=== PATIENT | male | born 1985 | race Caucasian/White ===

== ENCOUNTER 2017-05-21 10:02 | Inpatient (IN) | payer OTHER ==
[~2017-05-21] VITALS: Ht 175.3 cm; Wt 72.6 kg
[~2017-05-21 10:02] MED LIST: ABILIFY10 MG PO; BACTRIM DS TAB1 EACH PO; BUSPIRONE HCL5 MG PO; KEFLEX500 MG PO; MUPIROCIN22 GM TOP; NORCO 5-325 TA1 EACH PO; PERCOCET 5-3251 EACH PO; STRATTERA80 MG PO
--- NOTE | 2017-05-21 14:45 | NUR ---
PT WAS SHOWN TO HIS ROOM WITH DEPUTY. PT WAS NOT CHANGED INTO A GOWN PER POLICY. PT REMAINED IN 4PT CORRECTIONAL RESTRAINTS. SKIN UNDER RESTRAINTS IS INTACT. PT COOPERATIVE. C/O PAIN IN RIGHT MIDDLE FINGER. RIGHT MIDDLE FINGER IS VERY RED, VERY SWOLLEN, AND DISCOLORED. THERE IS A SMALL OPEN AREA IN CENTER THAT IS NOT CURRENTLY DRAINING. WOUND IS MARKED WITH MARKER.
--- NOTE | 2017-05-21 15:14 | NUR ---
PT'S RIGHT ARM ELEVATED WITH PILLOWCASE SLING. DEPUTY WAS ABLE TO RELEASE HAND FROM HANDCUFFS AND ZIP TIES.
--- NOTE | 2017-05-21 17:39 | NUR ---
PT INDEPENDENT IN ROOM WITH DEPUTY IN ROOM. SL IV EXCEPT FOR VANCOMYCIN. PRN NORCO X1 GIVEN, EFFECTIVE.
--- NOTE | 2017-05-21 18:04 | NUR ---
FLU SHOT GIVEN, CONSENT SIGNED AND IN CHART. PT TOLERATED WELL.
--- NOTE | 2017-05-21 21:24 | NUR ---
RECEIVED REPORT AT 1900. FOUND PT IN BED WATCHING TV AND IN GOOD SPIRITS. PAIN WAS TOLERABLE AT THAT TIME STATED BY PT. ARM WAS ELEVATED. ALL LOBES ARE CLEAR, V/S ARE WDL, PT DENIES NUMBNESS ON RIGHT MIDDLE FINGER. CAP REFILL ON THAT FINGER IS >3SEC. PAIN AT TIME OF ASSESSMENT WAS A 8. 1 TAB NORCO WAS GIVEN. OTHERWISE NO OTHER ISSUES WERE NOTED AT THIS TIME.
--- NOTE | 2017-05-22 00:44 | NUR ---
PT IS SLEEPING AT THIS TIME.
--- NOTE | 2017-05-22 02:35 | NUR ---
PT RECEIVED 15MG IV TORADOL AT 0200. REDNESS ON RIGHT MIDDLE FINGER HAS LESSEND. PT IS BACK IN BED.
--- NOTE | 2017-05-22 05:01 | NUR ---
V/S ARE WDL. PAIN IS CONTROLLED WITH PRN PAIN MEDS. CAP REFILL IS <3SEC IN RIGHT MIDDLE FINGER. REDNESS HAS LESSEND SIGNIFICANTLY SINCE THE LAST DOSE OF VANCOMYCIN. EDEMA IS STILL +2 ON THAT FINGER. NO NEW PROBLEMS NOTED SO FAR.
--- NOTE | 2017-05-22 07:24 | NUR ---
RECIEVED BEDSIDE REPORT FROM LOYDA HERNANDEZ. PT SLEEPING, BREATHING EVEN AND UNLABORED. DEPUTY AT BEDSIDE. CORRECTIONAL RESTRAINTS IN PLACE.
--- NOTE | 2017-05-22 09:46 | NUR ---
ROUNDED WITH PA. SHE IS PLEASED WITH PROGRESS AFTER 2 DOSES OF VANCO. ENCOURAGED PT TO KEEP HAND UP IN PILLOWCASE SLING. PT VERBALIZED UNDERSTANDING OF PLAN OF CARE. PT HAS BEEN COOPERATIVE WITH PLAN, HAS KEEP HIS ARM UP MOST OF THE TIME.
--- NOTE | 2017-05-22 13:50 | NUR ---
PT IN BED WITH ARM ELEVATED IN PILLOW SLING. PT STATES HIS HAND FEELS BETTER. REDNESS CONTINUES TO RECEED. SCANT AMT OF DRAINAGE AT TIMES.
--- NOTE | 2017-05-22 19:00 | NUR ---
BEDSIDE REPORT RECEIVED FROM OFFGOING NURSE. PT LYING IN BED WITH OFFICER AT BEDSIDE. PT'S HAND ELEVATED IN PILLOW CASE SLING. PT DENIES PAIN, OR NEEDS AT THIS TIME. CALL LIGHT WITHIN REACH.
--- NOTE | 2017-05-22 19:04 | NUR ---
PT APPROPRIATE THIS SHIFT. PT KEEPING HAND ELEVATED MAJORITY OF SHIFT. REDNESS AND SWELLING ARE RESOLVING. WOUND IS NOT DRAINING AT THIS TIME. PT STATES PAIN IS EFFECTIVLY CONTROLED WITH PRN NORCO, GIVEN TWICE THIS SHIFT. TOLERATES REGULAR DIET WELL. VOIDING WELL. NO BM REPORTED THIS SHIFT.
--- NOTE | 2017-05-22 21:30 | NUR ---
MD CONTACTED REGARDING PT HOME MED ABILIFY, NEW ORDER RECEIVED. INTERACTION BETWEEN ABILIFY AND OPIOID DISCUSSED WITH AND MARISSA
--- NOTE | 2017-05-22 22:30 | NUR ---
PT ASSESSMENT COMPLETED. PT RATES PAIN 7/10 TO R FINGER/ HAND. MOTION TO R HAND WEAK, PT STATES TINGLING AND SLIGHT NUMBNESS TO R FINGER. R FINGER HOT AND RED. REDNESS REMAINS WITHIN THE OUTLINED AREA. NO DISCHARGE NOTED. PT CONTINUES TO ELVATE HAND IN PILLOW CASE SLING. PRN NORCO AND TORADOL ADMINISTERED. PT DENIES OTHER NEEDS. CALL LIGHT WITHIN REACH.
--- NOTE | 2017-05-23 00:08 | NUR ---
PT RESTING IN BED WITH EYES CLOSED. RESPIRATIONS EVEN AND UNLABORED. PT APPEARS TO BE SLEEPING. DOES NOT WAKE TO IV PUMP ALARMING. OFFICER REMAINS AT BEDSIDE. CALL LIGHT WITHIN REACH.
--- NOTE | 2017-05-23 01:45 | NUR ---
PT RESTING WITH EYES CLOSED. WAKES EASILY. ASSESSMENT COMPLETED. PT DENIES PAIN AT THIS TIME. REDNESS TO R MIDDLE FINGER REMAINS WITHIN OUTLINE. NO DRAINAGE NOTED AT THIS TIME. PT ABLE TO WEAKLY SQUEEZE PUMP OILER'S FINGERS. REPORTS SLIGHT NUMBNESS AND TINGLING TO R MIDDLE FINGER. CAP REFILL <3 SEC. HAND REMOVED FROM SLING UPON ASSESSMENT. PT DENIES OTHER NEEDS. OFFICER REMAINS AT BEDSIDE. CALL LIGHT WITHIN REACH.
--- NOTE | 2017-05-23 04:15 | NUR ---
PT RESTING IN BED WITH EYES CLOSED. RESPIRATIONS EVEN AND UNLABORED PT APPEARS TO BE SLEEPING. OFFICER REMAINS AT BEDSIDE. CALL LIGHT WITHIN REACH.
--- NOTE | 2017-05-23 06:09 | NUR ---
PT HAS NOT VOIDED SINCE 2199 OR FLUIDS, SLEEPING. RN ASSIGNED AWARE.
--- NOTE | 2017-05-23 06:40 | NUR ---
UNEVENTFUL NIGHT. REDNESS TO R MIDDLE FINGER REMAINS WITHIN OUTLINE. NO DRAINAGE NOTED THIS SHIFT. PT ABLE TO WEAKLY SQUEEZE WITH R HAND. REPORTS NUMBNESS AND TINGLINING TO R MIDDLE FINGER. PT CONTINUES TO USE PILLOW CASE SLING APPROPRIATELY. PAIN MEDICATION X 1 THIS SHIFT. IND IN ROOM. IV SL.
--- NOTE | 2017-05-23 07:19 | NUR ---
RECIEVED BEDSIDE REPORT FROM LOYDA GARZA. PT AWAKE AND ALERT IN ROOM, DEPUTY AT BEDSIDE. REMINDED PT TO USE PILLOW SLING ABLE. NO C/O PAIN.
--- NOTE | 2017-05-23 10:17 | NUR ---
PT UP TO SHOWER WITH DEPUTY. HAND WRAPPED AND IV WRAPPED.
--- NOTE | 2017-05-23 10:31 | NUR ---
ROUNDED WITH DR RASHID. ABCESS WAS OPENED SLIGHTLY AND DRAINED A SMALL AMOUNT. MD WOULD LIKE PT TO SHOWER WITH WOUND OPEN TO ALLOW SOAP AND WATER TO RINSE. THEN DRESS WITH DRY GUAZE. PLAN TO DC TOMORROW.
--- NOTE | 2017-05-23 11:21 | NUR ---
ANTIBIOTIC RUNNING, NO COMPLAINTS. IV SITE REINFORCED WITH TAPE. RIGHT MIDDLE FINGER WRAPED WITH GAUZE AND COBAN. WOUND HAS MINIMAL DRAINAGE.
--- NOTE | 2017-05-23 13:22 | NUR ---
IV INFUSION COMPLETE. ASSISTED DEPUTY IN CHANGING WRIST RESTRAINTS. SKIN UNDER RESTRAINTS IS INTACT, NO REDNESS OR OPEN AREAS NOTED.
[2017-05-23] MEDS ORDERED: ARIPIPRAZOLE10 MG PO (14:22)
--- NOTE | 2017-05-23 14:43 | NUR ---
Admission reconciliation complete
--- NOTE | 2017-05-23 15:21 | NUR ---
Patient doing well. Watching football with the guard.
--- NOTE | 2017-05-23 15:49 | NUR ---
PT SLEEPING, BREATHING EVEN AND UNLABORED.
--- NOTE | 2017-05-23 16:51 | NUR ---
Got patient a hot pack for his finger.
--- NOTE | 2017-05-23 18:01 | NUR ---
DR RASHID OPENED WOUND ON R MIDDLE FINGER. WOUND DRAINING SMALL AMOUNTS OF PERULENT DISCHARGE. FINGER IS WRAPPED IN GUAZE AND COBAN. PT REPORTS LESS PAIN. PT USING PILLOW SLING APPROPRIATELY. NORCO X2. NEW IV IN R FOREARM.
--- NOTE | 2017-05-23 20:09 | NUR ---
PT ASSESSMENT COMPLETE. PT ALERT AND ORIENTED, PLEASANT AND COOPERATIVE. PT RATES PAIN 5/10 IN RIGHT MIDDLE FINGER, NORCO GIVEN. PT DENIES ANY N/V, SOB. PT ON ROOM AIR. RESTING IN BED WATCHING TV. RIGHT MIDDLE FINGER DRESSED WITH GAUZE/COBAN, C/D/I. SCANT PURULENT DRAINAGE NOTED TO WOUND. PT C/O NUMBNESS TO FINGER, STATES SAME BEFORE ADMISSION, NO BETTER AND NO WORSE. REDNESS IS NOTED TO BE WITHIN MARKED OUTLINE, WARM/FIRM TO TOUCH. PT A DETENTION INMATE, DEPUTY x1 AT BEDSIDE. CALL LIGHT WITHIN REACH. PT DENIES ANY FURTHER NEEDS AT THIS TIME.
--- NOTE | 2017-05-23 21:40 | NUR ---
PT REMOVED DRESSING TO RIGHT MIDDLE FINGER, REDRESSED WITH GAUZE AND COBAN. SMALL AMOUNT OF SEROSANGUINOUS DRAINAGE OOZING FROM SITE. GOOD CAP REFILL. MYA CRACKERS GIVEN PER PT REQUEST. CALL LIGHT WITHIN REACH. PT DENIES ANY FURTHER NEEDS AT THIS TIME.
--- NOTE | 2017-05-24 00:05 | NUR ---
PT SLEEPING, RR EVEN AND UNLABORED. PT APPEARS COMFORTABLE AT THIS TIME. CALL LIGHT WITHIN REACH.
--- NOTE | 2017-05-24 02:35 | NUR ---
PT SLEEPING, RR EVEN AND UNLABORED. PT APPEARS COMFORTABLE AT THIS TIME. DEPUTY AT BEDSIDE. RESTRAINTS IN PLACE PER HALF-WAY PROTOCOL. IV ABX INITIATED PER MD ORDERS, INFUSING WITHOUT DIFFICULTY. DRESSING TO RIGHT MIDDLE FINGER HAS SMALL AMOUNT OF SHADOWING NOTED TO COBAN, SEROSANGUINOUS DRAINAGE. GOOD CAP REFILL. CALL LIGHT WITHIN REACH.
--- NOTE | 2017-05-24 04:44 | NUR ---
PT SLEEPING, RR EVEN AND UNLABORED. PT APPEARS COMFORTABLE AT THIS TIME. CALL LIGHT WITHIN REACH.
--- NOTE | 2017-05-24 07:43 | NUR ---
PT REQUESTED PAIN MEDICATION FOR 7/10 RIGHT HAND PAIN. PT AMB IN ROOM INDEPENDENTLY. FEET AND HANDS IN CORRECTIONAL RESTRAINTS. 1 SOLE ROUNDER AT BEDSIDE. PT MEDICATED AND IV SL. PT GIVEN BLACK COFFEE PER REQUEST. RIGHT HAND DRESSING INTACT WITH SMALL AMOUNT OF RED DRAINAGE NOTED. CMS INTACT. CALL LIGHT WITHIN REACH.
[2017-05-24] MEDS ORDERED: LEVAQUIN750 MG PO (08:27)
--- NOTE | 2017-05-24 10:42 | NUR ---
RIGHT FINGER REDRESSED BY PEPE JAMESON. PT TO RECIEVE ONE LAST DOSE OF VANCO BEFORE DC. PT SITTING IN BED WATCHING TV, IV INFUSING WNL. CALL LIGHT WITHIN REACH.
== END 2017-05-24 12:00 | disposition home or self-care (01) | DRG 603 ==
LOC: MS 10:02
PROVIDERS: ADMIT Specialist
PROC: 3E0234Z Introduction of Serum, Toxoid and Vaccine into Muscle, Percutaneous Approach (ICD-10-PCS; principal; 2017-05-21)
DX: L03.011 Cellulitis of right finger (principal); Z23 Encounter for immunization
CPT/HCPCS: 36415; 80048; 80053; 80202; 83605; 85025; 90674; 96365; 96366; 96375; 96376; G0008; G0378; G0379; J1885; J3370

== ENCOUNTER 2018-01-07 14:30 | Emergency (ER) | payer OTHER ==
[~2018-01-07] VITALS: Ht 175.3 cm; Wt 93.0 kg
[~2018-01-07 14:30] MED LIST changes: +ARIPIPRAZOLE10 MG PO; +LEVAQUIN750 MG PO
[2018-01-07] MEDS ORDERED: LAMICTAL25 MG PO (14:38)
== END 2018-01-07 14:45 | disposition home or self-care (01) ==
LOC: ED 14:30
DX: M25.511 Pain in right shoulder (principal)

== ENCOUNTER 2019-08-09 21:01 | Emergency (ER) | payer OTHER ==
[~2019-08-09] VITALS: Ht 175.3 cm; Wt 83.9 kg
[~2019-08-09 21:01] MED LIST changes: +LAMICTAL25 MG PO
[2019-08-09] MEDS ORDERED: ABILIFY MAINTE400 M1 IM (21:11)
[2019-08-09] MEDS ORDERED: REMERON15 MG PO (21:11)
[2019-08-09] MEDS ORDERED: PENICILLIN V P500 MG PO (22:11)
== END 2019-08-09 22:35 | disposition home or self-care (01) ==
LOC: ED 21:01
PROC: 0CQ0XZZ Repair Upper Lip, External Approach (ICD-10-PCS; principal; 2019-08-09)
DX: S01.511A Laceration without foreign body of lip, initial encounter (principal); Y04.8XXA Assault by other bodily force, initial encounter; F31.9 Bipolar disorder, unspecified; F17.200 Nicotine dependence, unspecified, uncomplicated; Z79.899 Other long term (current) drug therapy
CPT/HCPCS: 40650; 99282-25

== ENCOUNTER 2020-07-03 20:44 | Emergency (ER) | payer MEDICAID ==
[~2020-07-03] VITALS: Ht 175.3 cm; Wt 86.2 kg
[~2020-07-03 20:44] MED LIST changes: +ABILIFY MAINTE400 M1 IM; +PENICILLIN V P500 MG PO; +REMERON15 MG PO
[2020-07-03] MEDS ORDERED: ABILIFY10 MG PO (20:59)
== END 2020-07-03 22:25 | disposition left against medical advice (07) ==
LOC: ED 20:44
DX: N50.812 Left testicular pain (principal); N50.811 Right testicular pain; F41.9 Anxiety disorder, unspecified; F31.9 Bipolar disorder, unspecified; F17.200 Nicotine dependence, unspecified, uncomplicated; Z79.899 Other long term (current) drug therapy
CPT/HCPCS: 76870; 81001; 99284-25

== ENCOUNTER 2020-10-01 00:54 | Emergency (ER) | payer OTHER ==
[~2020-10-01] VITALS: Ht 175.3 cm; Wt 83.9 kg
[2020-10-01] MEDS ORDERED: CYCLOBENZAPRINE10 MG PO (01:42)
[2020-10-01] MEDS ORDERED: MEDROL4 M1 PO (01:42)
== END 2020-10-01 01:54 | disposition home or self-care (01) ==
LOC: ED 00:54
DX: M54.5 Low back pain (principal); R00.0 Tachycardia, unspecified; F19.10 Other psychoactive substance abuse, uncomplicated; F17.200 Nicotine dependence, unspecified, uncomplicated
CPT/HCPCS: 81001; 99283

== ENCOUNTER 2021-09-08 12:27 | Emergency (ER) | payer OTHER ==
[~2021-09-08] VITALS: Ht 175.3 cm; Wt 83.9 kg
[~2021-09-08 12:27] MED LIST changes: +CYCLOBENZAPRINE10 MG PO; +MEDROL4 M1 PO
[2021-09-08] MEDS ORDERED: HYDROXYZINE PAM25 MG PO (17:00)
[2021-09-08] MEDS ORDERED: CLONIDINE HCL0.1 MG PO (17:00)
--- NOTE | 2021-09-09 18:16 | EKG ---
[facility] [address] [place], [place] [address] Signed Normal sinus rhythm Minimal voltage criteria for LVH, may be normal variant ( Sokolow-Olmstead ) Borderline ECG No previous ECGs available Confirmed by CHRISTINE EVANS DO ([id number]) on 09/09/2021 6:16:26 PM Electronically Signed By: CHRISTINE EVANS DO 09/09/21 1816 PATIENT NAME: JOSE WAKEFIELDMARIA ESTHER JUNE Electrocardiogram DATE OF : 81 PHYSICIAN: CHRISTINE EVANS DO REPORT #: [id number] REPORT IS CONFIDENTIAL AND NOT TO BE RELEASED WITHOUT AUTHORIZATION
== END 2021-09-08 16:49 | disposition home or self-care (01) ==
LOC: ED 12:27
DX: R41.82 Altered mental status, unspecified (principal); F17.200 Nicotine dependence, unspecified, uncomplicated; Z79.899 Other long term (current) drug therapy; Z79.52 Long term (current) use of systemic steroids
CPT/HCPCS: 70450; 71045; 80053; 80164; 81001; 85025; 93005; 93010; 99285-25; G0480; J7030

== ENCOUNTER 2023-08-15 15:49 | Emergency (ER) | payer OTHER ==
[~2023-08-15] VITALS: Ht 175.3 cm; Wt 86.9 kg
[~2023-08-15 15:49] MED LIST changes: +CLONIDINE HCL0.1 MG PO; +HYDROXYZINE PAM25 MG PO
[2023-08-15] MEDS ORDERED: GABAPENTIN300 MG PO (16:09)
[2023-08-15] MEDS ORDERED: DULOXETINE HCL60 MG PO (16:09)
[2023-08-15] MEDS ORDERED: HYDROXYZINE HCL25 MG PO (16:09)
[2023-08-15] MEDS ORDERED: PREDNISONE20 MG PO (16:31)
[2023-08-15 16:35] VITALS: BP 115/81
== END 2023-08-15 16:42 | disposition home or self-care (01) ==
LOC: ED 15:49
DX: M54.12 Radiculopathy, cervical region (principal); F17.200 Nicotine dependence, unspecified, uncomplicated; Z79.899 Other long term (current) drug therapy
CPT/HCPCS: 99284; J7512

== ENCOUNTER 2023-08-18 08:22 | Emergency (ER) | payer OTHER ==
[~2023-08-18] VITALS: Ht 175.3 cm; Wt 86.6 kg
[~2023-08-18 08:22] MED LIST changes: +DULOXETINE HCL60 MG PO; +GABAPENTIN300 MG PO; +HYDROXYZINE HCL25 MG PO; +PREDNISONE20 MG PO
[2023-08-18] MEDS ORDERED: MELOXICAM15 MG PO (08:33)
[2023-08-18 08:48] LABS: BASOPHILS 0.6 % (0-2); EOSINOPHILS 2.4 % (0-6); HEMATOCRIT 44.2 % (35.0-50.0); HEMOGLOBIN 14.7 g/dL (12.0-18.0); LYMPHOCYTES 33.9 % (24-44); MCH 30.5 (27-36); MCHC 33.2 g/dl (30-36); MCV 91.8 fl (81-99); MONOCYTES 6.2 % (0-12); NEUTROPHILS 56.9 % (39-80); PLATELET COUNT 79 K/uL (140-440); RBC 4.81 M/ul (4.3-5.7); RDW 13.5 (10.5-15.0)
--- OUTSIDE RECORDS SUMMARY | 2023-08-18 08:53 | XMS ---
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 E.D. VISIT COUNT (12 MO.) 2 [place] [facility] Mary AlondraSydnee Montalvo) 1 [facility] TOTAL 5 NOTE: Visits indicate total known visits. ED/UCC VISIT TRACKING (12 MO.) 08/18/2023 08:23 [facility] [place] TYPE: Emergency COMPLAINT: - CHEST PAIN 08/15/2023 15:50 [facility] [place] TYPE: Emergency COMPLAINT: - RT ARM NUMBNESS DIAGNOSES: - Anesthesia of skin - Nicotine dependence, unspecified, uncomplicated - Other custodial (current) drug therapy - Radiculopathy, cervical region 05/17/2023 10:07 [facility] [place] TYPE: Emergency DIAGNOSES: - Acute suppurative otitis media without spontaneous rupture of ear drum, recurrent, left ear - EAR PAIN 11/16/2022 18:49 [facility] (Katia Montalvo) TYPE: Emergency DIAGNOSES: - Acute toxic conjunctivitis, bilateral - Eye Problem - vision/contacts 09/17/2022 07:49 [facility] (Katia Montal[facility]) TYPE: Emergency DIAGNOSES: - Unspecified otitis externa, unspecified ear - Ear Drainage - right ear pain and swelling INPATIENT VISIT TRACKING (12 MO.) No inpatient visits to display in this time frame [email or web address]
[2023-08-18 09:02] LABS: ALBUMIN 3.5 g/dL (3.4-5.0); ALBUMIN/GLOBULIN RATIO 1.03 (1.1-2.4); ANION GAP 15.5 (7-21); BILIRUBIN, TOTAL 0.4 ng/dL (0.2-1.0); BUN/CREATININE RATIO 18.64 (6.0-28.6); CREATININE, SERUM 1.18 mg/dL (0.70-1.30); MAGNESIUM 1.6 mg/dL (1.8-2.4); POTASSIUM 4.5 mmol/L (3.5-5.1); PROTEIN, TOTAL 6.9 g/dL (6.4-8.2)
[2023-08-18 09:30] LABS: INR 0.98 (0.80-1.30); PROTIME 12.6 Sec (11.2-14.2)
[2023-08-18 10:50] VITALS: BP 112/71
--- NOTE | 2023-08-18 14:53 | EKG ---
[facility] [address] [place], [place] [address] Signed Normal sinus rhythm Minimal voltage criteria for LVH, may be normal variant ( Sokolow-Olmstead ) Nonspecific ST and T wave abnormality Abnormal ECG No previous ECGs available Confirmed by GURPREET ALTMAN MD ([id number]) on 08/18/2023 2:52:57 PM Electronically Signed By: GURPREET ALTMAN 08/18/23 1453 PATIENT NAME: JOSE WAKEFIELDMARIA ESTHER JUNE Electrocardiogram DATE OF : 81 PHYSICIAN: GURPREET ALTMAN REPORT #: [id number] REPORT IS CONFIDENTIAL AND NOT TO BE RELEASED WITHOUT AUTHORIZATION
== END 2023-08-18 10:50 | disposition home or self-care (01) ==
LOC: ED 08:22
PROVIDERS: Emergency Medicine
DX: R07.89 Other chest pain (principal); K21.9 Gastro-esophageal reflux disease without esophagitis; F17.200 Nicotine dependence, unspecified, uncomplicated; F98.8 Other specified behavioral and emotional disorders with onset usually occurring in childhood and adolescence; F31.9 Bipolar disorder, unspecified; F41.9 Anxiety disorder, unspecified; Z79.899 Other long term (current) drug therapy
CPT/HCPCS: 36415; 71045; 80053; 83690; 83735; 84484; 85025; 85379; 85610; 93005; 93010; J1885; J2060; J7030

== ENCOUNTER 2023-10-20 13:18 | Emergency (ER) | payer OTHER ==
[~2023-10-20] VITALS: Ht 175.3 cm; Wt 79.7 kg
--- NOTE | ~2023-10-20 | EKG ---
[facility] [address] [place], [place] [address] Draft EK completed, results pending confirmation PATIENT NAME: MAURILIO WAKEFIELD SHAYLEE Electrocardiogram DATE OF : 81 PHYSICIAN: PRELIMINARY REPORT #: [id number] REPORT IS CONFIDENTIAL AND NOT TO BE RELEASED WITHOUT AUTHORIZATION
[~2023-10-20 13:18] MED LIST changes: +MELOXICAM15 MG PO
[2023-10-20] MEDS ORDERED: METOPROLOL SUCC25 MG PO (13:27)
[2023-10-20 13:51] LABS: BASOPHILS 0.8 % (0-2); HEMATOCRIT 43.3 % (35.0-50.0); HEMOGLOBIN 14.4 g/dL (12.0-18.0); LYMPHOCYTES 28.6 % (24-44); MCH 29.8 (27-36); MCHC 33.2 g/dl (30-36); MCV 89.8 fl (81-99); MONOCYTES 7.1 % (0-12); NEUTROPHILS 60.5 % (39-80); PLATELET COUNT 338 K/uL (140-440); RBC 4.82 M/ul (4.3-5.7); RDW 13.1 (10.5-15.0)
[2023-10-20 14:05] LABS: ALBUMIN 3.5 g/dL (3.4-5.0); ALBUMIN/GLOBULIN RATIO 1.03 (1.1-2.4); ALKALINE PHOSPHATASE 72 U/L (46-116); ALT (SGPT) 33 U/L (14-59); ANION GAP 13.6 (7-21); AST (SGOT) 16 U/L (15-37); BILIRUBIN, TOTAL 0.2 ng/dL (0.2-1.0); BUN/CREATININE RATIO 22.91 (6.0-28.6); CARBON DIOXIDE 28 mmol/L (21-32); CHLORIDE 102 mmol/L (98-107); CREATININE, SERUM 0.96 mg/dL (0.70-1.30); GLOMERULAR FILTRATION RATE,EST 102 mL/min (>60); MAGNESIUM 1.8 mg/dL (1.8-2.4); POTASSIUM 3.6 mmol/L (3.5-5.1); PROTEIN, TOTAL 6.9 g/dL (6.4-8.2); UREA NITROGEN 22 mg/dL (7-18)
== END 2023-10-20 15:41 | disposition other institution, planned readmission (95) ==
LOC: ED 13:18
PROVIDERS: Emergency Medicine
DX: R07.9 Chest pain, unspecified (principal); Z53.21 Procedure and treatment not carried out due to patient leaving prior to being seen by health care provider
CPT/HCPCS: 36415; 71045; 80053; 83735; 84484; 85025; 93005; 93010